=== PATIENT | female | born 1990 | race Caucasian/White ===

== ENCOUNTER → 2016-02-26 | Outpatient (CLI) | payer OTHER ==
[~2016-02-26] MED LIST: MEDR150I19 INJ; TRAZ50TA35 PO
== END | disposition home or self-care (01) ==
LOC: C.PAPS 14:47
PROVIDERS: ATTEND Obstetrics & Gynecology
DX: Z12.4 Encounter for screening for malignant neoplasm of cervix (principal)

== ENCOUNTER → 2016-03-13 | Day surgery (SDC) | payer OTHER ==
[~2016-03-13] VITALS: Ht 160 cm; Wt 81.8 kg
[~2016-03-13] MED LIST changes: +LIDOCAINE HCL 2% 2 ML VIAL (20MG/ML) ONE; +PROPOFOL IV EMULSION 10 MG/ML 20 ML VIAL IV ONE; +SODIUM CHLORIDE 0.9% 500ML 500 ML IV ONE
[2016-03-13 10:42] VITALS: Ht 160 cm; Wt 81.8 kg
[2016-03-13 10:47] VITALS: TEMP 37.1
--- NOTE | 2016-03-13 10:54 | Endo History and Physical ---
History & Physical Date of Service: Mar 13, 2016. Chief Complaint: Family Hx colon cancer Referring Physician: Dr. Pickard History of Present Illness 25 yo CF who presents for colonoscopy secondary to family history of colon cancer. Past Medical History Reflux, Other Past Surgical History Hx Cardiac Surgery: No Hx Internal Defibrillator: No Hx Pacemaker: No Hx Abdominal Surgery: Yes (LAP CHOLEY) Hx of Implantable Prosthesis: No Hx Post-Op Nausea and Vomiting: No Hx Cancer Surgery: No Hx Thoracic Surgery: No Hx Orthopedic: Yes (LEFT KNEE REPAIR (REMOVAL OF SEWING NEEDLE)) Hx Urinary Tract Surgery: No Family History Colon CA, Polyp Social History Smoking Status: Never Smoker Hx Substance Use: No Hx Alcohol Use: Yes (6 DRINKS ON WEEKENDS) Allergies Coded Allergies: No Known Allergies (Verified , 03/13/16) Current Medications Reported Home Medications Medications Dose Route/Sig Max Daily Dose Days Date Category Trazodone (Trazodone HCl) 50 Mg Tab 50 Mg PO HS PRN 01/22/16 Reported Medroxyprogesterone Aceta (Medroxyprogesterone Acetate (C) 150 Mg/Ml Inj 1 Ml INJ Q12 WEEKS 01/31/13 Reported Vital Signs Weight (Kilograms): 81.82 Height (Feet): 5 Height (Inches): 3 Date Time Temp Pulse Resp B/P Pulse Ox O2 Delivery O2 Flow Rate FiO2 03/13/16 10:47 37.1 84 16 158/75 100 Room Air Physical Exam General Appearance: WD/WN, no apparent distress Respiratory/Chest: Auscultation: breath sounds normal Cardiovascular: Heart Auscultation: RRR Abdomen: Bowel Sounds: normal Inspection & Palpation: soft, non-distended, no tenderness, guarding & rebound Assessment and Plan Assessment: 25 yo CF who presents for colonoscopy secondary to family history of colon cancer. Plan: Proceed with colonoscopy.
--- NOTE | 2016-03-13 12:17 | Discharge Instructions ---
Endoscopy Patient Instructions Date / Procedure(s) Performed Mar 13, 2016. Colonoscopy Allergy Information Coded Allergies: No Known Allergies (Verified , 03/13/16) Discharge Date / Findings Mar 13, 2016. Normal colonoscopy Medication Instructions OK to resume all medications today as prescribed. Reported Home Medications Medications Dose Route/Sig Max Daily Dose Days Date Category Trazodone (Trazodone HCl) 50 Mg Tab 50 Mg PO HS PRN 01/22/16 Reported Medroxyprogesterone Aceta (Medroxyprogesterone Acetate (C) 150 Mg/Ml Inj 1 Ml INJ Q12 WEEKS 01/31/13 Reported Provider Instructions Activity Restrictions - No exercising or heavy lifting for 24 hours. - Do not drink alcohol the day of the procedure. - Do not drive a car or operate machinery until the day after the procedure. - Do not make any important decisions or sign important papers in 24 hours after the procedure. Following Day: - Return to full activity which may include returning to work/school. Diet Start your diet with liquids and light foods (jello, soup, juice, toast). Then eat your usual diet if not nauseated. Treatment For Common After Affects For mild abdominal pain, bloating, or excessive gas: - Rest - Eat lightly - Lie on right side Follow-Up Information Follow-up with Dr. Pickard as scheduled Anesthesia Information What You Should Know You have had a procedure that required some medicine to reduce anxiety and discomfort. This treatment is called moderate sedation. After receiving the treatment, you may be sleepy, but you will be able to breathe on your own. The effects of the treatment may last for several hours. Follow these instructions along with Activity/Diet recommendations noted above: * Do NOT do anything where dizziness or clumsiness would be dangerous. * Rest quietly at home today, then you can be up and about tomorrow. * Have a responsible person stay with you the rest of today. * You may have had an I.V. today. If so, you may take the dressing off later today. Recommendations Call your doctor if: * Trouble breathing * Continuous vomiting for more than 24 hours * Temperature above 101 degrees * Severe abdominal pain or bloating * Pain not relieved by pain medicine ordered * There is increased drainage or redness from any incision * A large amount of rectal bleeding greater than 2-3 tablespoons. (If you had a polyp/s removed or have hemorrhoids, a small amount of blood - from the rectum is to be expected.) * You have any unanswered questions or concerns. IN THE EVENT OF A SERIOUS EMERGENCY, GO TO THE NEAREST EMERGENCY ROOM Your discharge instructions were prepared by provider Elias Fang. Patient Instructions Signature Page Elke John Patient (or Guardian) Signature/Date: I have read and understand the instructions given to me by my caregivers. Caregiver/RN/Doctor Signature/Date: The above-named patient and/or guardian has received patient instructions on this date. + Original Patient Signature Page (only) stays with chart. Please make copy for patient.
--- NOTE | 2016-03-13 12:20 | Anesthesiology Progress Note ---
Anesthesia Post Op Note Date & Time Mar 13, 2016 at 12:21 Vital Signs Pain Intensity: 0 Vital Signs Past 12 Hours Date Time Temp Pulse Resp B/P Pulse Ox O2 Delivery O2 Flow Rate FiO2 03/13/16 10:47 37.1 84 16 158/75 100 Room Air Notes Mental Status: alert / awake / arousable, participated in evaluation Pt Amnestic to Procedure: Yes Nausea / Vomiting: adequately controlled Pain: adequately controlled Airway Patency, RR, SpO2: stable & adequate BP & HR: stable & adequate Hydration State: stable & adequate Anesthetic Complications: no major complications apparent
--- NOTE | 2016-03-13 12:25 | GI REPORT ---
Procedure Date: 03/13/2016 11:05 AM Procedure: Colonoscopy Indications: Family history of colon cancer in a first-degree relative Medicines: Monitored Anesthesia Care Complications: No immediate complications. Estimated Blood Loss: Estimated blood loss: none. Procedure: Pre-Anesthesia Assessment: - Prior to the procedure, a History and Physical was performed, and patient medications and allergies were reviewed. The patient's tolerance of previous anesthesia was also reviewed. The risks and benefits of the procedure and the sedation options and risks were discussed with the patient. All questions were answered, and informed consent was obtained. Prior Anticoagulants: The patient has taken no previous anticoagulant or antiplatelet agents. ASA Grade Assessment: II - A patient with mild systemic disease. After reviewing the risks and benefits, the patient was deemed in satisfactory condition to undergo the procedure. After I obtained informed consent, the scope was passed under direct vision. Throughout the procedure, the patient's blood pressure, pulse, and oxygen saturations were monitored continuously. The scope was introduced through the anus and advanced to the terminal ileum. The colonoscopy was performed without difficulty. The patient tolerated the procedure well. The quality of the bowel preparation was good. The terminal ileum, ileocecal valve, appendiceal orifice, and rectum were photographed. Findings: The colon (entire examined portion) appeared normal. Impression: - The entire examined colon is normal. - No specimens collected. Recommendation: - Resume previous diet. - Continue present medications. - Repeat colonoscopy in 5 years for surveillance. - Return to primary care physician as previously scheduled. Elias Fang DO 03/13/2016 12:25:30 PM This report has been signed electronically. Note Initiated On: 03/13/2016 11:05 AM I attest to the content of the Intraoperative Record and orders documented therein, exceptions below
[2016-03-13 12:38] VITALS: BP 133/80; PULSE 80; O2SAT 100
== END | disposition home or self-care (01) ==
LOC: C.GI 10:27
PROVIDERS: ATTEND Internal Medicine
DX: Z80.0 Family history of malignant neoplasm of digestive organs (principal)

== ENCOUNTER → 2016-12-29 | Outpatient (CLI) | payer OTHER ==
[~2016-12-29] MED LIST changes: -LIDOCAINE HCL 2% 2 ML VIAL (20MG/ML) ONE; -PROPOFOL IV EMULSION 10 MG/ML 20 ML VIAL IV ONE; -SODIUM CHLORIDE 0.9% 500ML 500 ML IV ONE
--- NOTE | 2016-12-29 12:04 | DIAGNOSTIC IMAGING REPORT ---
ULTRASOUND OF THE THYROID GLAND CLINICAL HISTORY: Thyroid nodules. Thyroid fullness. COMPARISON STUDY: Thyroid ultrasound dated 11/12/2015. TECHNIQUE: Real-time, grayscale, and color flow sonography of the thyroid gland is performed utilizing a high-frequency linear transducer. Images are reviewed in the transverse and longitudinal planes. FINDINGS: Right lobe: The right lobe of the thyroid gland is normal in size and homogeneous in echotexture, measuring 5.6 x 1.4 x 2.2 cm. A colloid cyst in the medial right lobe measures 1.0 x 0.7 x 1.0 cm numerous additional subcentimeter colloid cyst identified in the right lobe. Left lobe: The left lobe of the thyroid gland is normal in size and homogeneous in echotexture, measuring 5.4 x 1.3 x 1.9 cm. A constant cyst in the anterior midpole measures 0.8 x 0.4 x 0.5 cm (previously measuring 0.6 x 0.4 x 0.7 cm). Additional subcentimeter colloid cysts are identified. Isthmus: The thyroid isthmus is normal in appearance and measures 0.3 cm in AP diameter. IMPRESSION: 1. The thyroid gland is normal in size and homogeneous in echotexture. 2. Numerous small colloid cysts are identified. These are similar to previous and do not meet sonographic criteria for fine needle aspiration. Electronically signed by: Jeffery Escamilla M.D. 12/29/2016 12:02 PM Dictated Date/Time: 12/29/2016 11:56 AM
== END | disposition home or self-care (01) ==
LOC: C.ULTR 11:00
PROVIDERS: ATTEND Surgery
DX: E07.89 Other specified disorders of thyroid (principal)